=== PATIENT | female | born 1955 | race African-American/Black ===

== ENCOUNTER 2020-06-14 20:21 | Emergency (ER) | payer OTHER ==
--- OUTSIDE RECORDS SUMMARY | 2020-06-14 20:24 | XMS REPORT | Continuity of Care Document ---
:1955 Author Organization [facility] t Address [address] [place] [address] [address]. [address] [place] [address] Care Team Providers Name Role Phone Sami Benoit MD Primary Care Physician Roland Love MD Attending Clinician Raeann ROMO, T. Attending Clinician Unavailable Adriana ROMO Attending Clinician Payers Payer Name Policy Type Policy Effective Date Expiration Date Sour ce Number CIGNACIGNA OPEN [id number] 2013 [place] ACCESS/NETWORKxx 00:00:00 Methodis t [id number]/28/20 14-PresentHMO CIGNA - MGD [id number] 2013 [facility] HMO/POS/OPEN [id number] -Prese ntHMO/POS Problems Condition Condition Condition Status Onset Resolution Last Treating Co mments Source Name Details Category Date Date Treatment Clinician Date Hemorrhoid Hemorrhoid Disease Active H sean s s [facility] Colon Colon Disease Active [place] polyp polyp Methodi [facility] Family Family Disease Active [place] history of history of Me thodi polyps in polyps in st the colon the colon Allergies, Adverse Reactions, Alerts Allergy Allergy Status Severity Reaction(s) Onset Inactive Treating Comm ents Source Name Type Date Date Clinician Lourdes Salcedo Active Anaphylaxis H sean h ty to 6-12 Methodi Derived adverse 00:00: st reaction 00 s to drug Family History Family Member Diagnosis Comments Start Date Stop Date Source Natural mother Colon polyps Idris Landeros Social History Social Habit Start Date Stop Date Quantity Comments Source Sex Assigned At [facility] Exposure to Not sure Idris Metho dist SARS-CoV-2 (event) Alcohol intake 2016-08-06 2016-08-06 Current drinker [place] [facility] 00:00:00 00:00:00 of alcohol (finding) Smoking Status Start Date Stop Date Source Never smoker Idris Coreyis t Medications Ordered Filled Start Stop Current Ordering Indication Dosage Frequency Signature Comments Components Source Medication Medication Date Date Medication? Clinician (SIG) Name Name Suprep Yes History of Drink 1 [place] Bowel Prep 3-04 colon bottle as Met hodi Kit 00:00: polyps directed st 17.5-3.13-1 00 for dose 1 .6 gram and 1 [place] bottle as directed for dose 2. SUPREP Yes Family 1 kit - [place] BOWEL PREP 6-15 history of take as Methodi KIT 00:00: polyps in directed st 17.5-3.13-1 00 the colon .6 gram [place] verapamil Yes 240mg Take 240 [address] [address] sustained 6-12 mg by Methodi release 13:13: mouth. st (CALAN-SR) 47 240 MG SR tablet losartan Yes 100mg Take 100 [place] (COZAAR) 6-12 mg by Methodi 100 MG 13:13: mouth. st tablet 47 Procedures Procedure Date / Time Performed Performing Clinician [facility] SURGICAL PATHOLOGY 2020-05-12 15:14:00 Luis Love REQUEST [place] COLONOSCOPY-EXTERNAL 2020-05-12 13:27:04 Luis Love MCE [place] COVID-19 QUALITATIVE 2020-05-10 15:21:00 Luis Love PCR [place] US BREAST RIGHT 2020-02-22 11:32:00 Katty Cary [facility] MM DIGITAL MAMMO SCREEN 2019-10-30 08:49:00 Katty Cary [facility] Plan of Care Planned Activity Planned Date Details Comments Source Future Scheduled 2021-10-[address] [facility] 00:00[facility]00 [facility] breast (procedure) [code = 437529705] Future Scheduled 2020-09-25 INFLUENZA VACCINE [place] [facility] Test 00:00:00 [code = INFLUENZA VACCINE] Future Scheduled 2020-02-[address] [facility] - Test 00:00:00 (12+) [code = [facility] DEPRESSION SCREENING (12+)] Future Scheduled 2019-10-[address] [facility] - Test 00:00:00 (#1) [code = [facility] INFLUENZA VACCINE (#1)] Future Scheduled 2006 BREAST CANCER [facility] Test 00:00:00 SCREENING [code = BREAST CANCER SCREENING] Future Scheduled 2006 COLONOSCOPY SCREENING [place] [facility] Test 00:00:00 [code = COLONOSCOPY SCREENING] Future Scheduled 2006 SHINGLES VACCINES [place] [facility] Test 00:00:00 (#1) [code = SHINGLES VACCINES (#1)] Future Scheduled [address] [facility] Test 00:00:00 (procedure) [code = [facility] 14300289] Future Scheduled [address] [facility] Test 00:00:00 [facility] cervix (procedure) [code = 722078053] Future Scheduled 1977 Screening for [facility] Test 00:00:00 malignant neoplasm of cervix (procedure) [code = 745250517] Future Scheduled 1974 Hepatitis C screening [place] [facility] Test 00:00:00 (procedure) [code = 029659071] Future Scheduled 1972 COVID-19 VACCINE (1) [place] [facility] [facility] Test 00:00:00 [code = COVID-19 VACCINE (1)] Future Scheduled [address] [facility] 00:00:00 [facility] colon (procedure) [code = 101362824] Encounters Start End Encounter Admission Attending Care Care Encounter Source Date/Time Date/Time Type Type Clinicians Facility Department ID 2020-05-12 2020-05-12 Outpatient [facility] [id number] [place] 00:00:00 00:00:00 LUIS [address] 2020-05-10 2020-05-10 Outpatient [facility] [id number] [place] 00:00:00 00:00:00 LUIS [address] 2019-10-27 2019-10-27 Office ELIOT Wright [id number] 11:02:57 11:43:04 Visit Jovi AMBULATOR 350.1.13.21 Y [id number] [id number] 2019-09-22 2019-09-22 Office ELIOT Wright [id number] 13:52:21 16:14:53 Visit Jovi AMBULATOR 350.1.13.21 Y [id number] [id number] 300 Results Test Description Test Time Test Comments Results Result Comments Source Surgical pathology request 2020-05-13 14:38:44 Test Item Value Reference Range Interpretation Comme nts Case number (test code = 8641931) [id number] Surgical pathology report (test code = See link below for PDF Lab R eport 2255) Result status (test code = 6352986) This is Final Report for [id number] Idris LanderosCOVID-19 qualitative [id number] 20:49:43 Test Item Value Reference Range Interpretation Comments Interpretation (test Negative results do code = 1011208) not preclude 2019-nCoV infection and should not be used as the sole basis for treatment or other patient management decisions. Negative results must be combined with clinical observations, patient history, and epidemiological information. COVID-19 qualitative Not-Detected Not-Detected PCR result (test code = 84684-8) COVID-19 qualitative See link below for C ase Number: PCR (test code = PDF Lab Report [id number]) Idris Kim, U/S, BREAST, UNILATERAL, [id number] 11:37:00Diagnostic workup per radiologist?->YesReason for Exam:->N63.10 [facility] : 1955 Sex: FMRN#: [id number] - MM, U/S, BREAST, UNILATERAL, RIGHT COMPLETE ULTRASOUND OF RIGHT BREAST AND AXILLA: 02/22/2020Comparison is made to exam dated: 10/30/2019 mammogram [facility]. Color flow and real-time ultrasound of the right breast fourquadrants, retroareolar, and axilla regions were performed. Carter scale images of the real-time examination were reviewed. There is a benign 5 mm cyst in the right breast at 10 o'clock anterior depth. This correlates with mammography findings. IMPRESSION: BENIGN The findings have been discussed with the patient. There is no sonographic evidence of malignancy. The 5 mm cyst in the right breastis benign. A 1 year screening mammogram is recommended. Jes Mcdaniel M.D. pth/penrad:02/22/2020 11:37:32 Normal Exam Ultrasound BI-RADS: 2 Benign [id number] Breast [id number] 11:37:00Interface, External Ris In - 02/22/2020 1:02 PM CSTMRN#: [id number] - MM, U/S, BREAST, UNILATERAL, RIGHT COMPLETE ULTRASOUND OF RIGHT BREAST AND AXILLA: 02/22/2020Comparison is made to exam date d: 10/30/2019 mammogram [facility]. Color flow and real-time ultrasound of the right breast four quadrants, retroareolar, and axilla regions were performed. Carter scale images of the real- time examination were reviewed. There is a benign 5 mm cyst in theright breast at 10 o'clock anterior depth. This correlates with mammography findings. IMPRESSION: BENIGN The findings have been discussed with the patient. There is no sonographic evidence of malignancy. The 5 mm cyst in the right breast is benign. A 1 year screening mammogram is recommended. Jes Mcdaniel M.D. pth/penrad:02/22/2020 11:37:32 Normal Exam Ultrasound BI-RADS: 2 Benign [id number] [place] [facility], [facility]CREEN[facility], BILATERAL INCLUDING [id number] 09:03:00Diagnostic workup per radiologist?->YesReason for Exam:->screeningMRN#: [id number] - MM, DIGITAL, MAMMO, SCREENING, BILATERAL INCLUDING CAD BILATERAL DIGITAL SCREENING MAMMOGRAM WITH CAD: 10/30/2019 Comparison is made to exams dated: 10/15/2017 mammogram, 03/12/2016 mammogram, and 07/23/2013 mammogram - [facility]. There are scattered fibroglandular elements in both breasts that could obscure a lesion on mammography. Current study was also evaluated with a Computer Aided Detection (CAD) system. Benign appearing calcifications are present in the left breast. There is a new 5 mm oval mass with an obscured and circumscribed margin in the right breast at 10 o'clock anterior depth. No other significant masses, calcifications, or other findings are seen in either breast. IMPRESSION: INCOMPLETE: NEEDS ADDITIONAL IMAGING EVALUATIONThe new 5 mm oval mass in the right breast is indeterminate. An ultrasound is recommended. Jes Mcdaniel M.D. pth/penrad:10/30/2019 09:03:58 Addional Imaging Needed Mammogram BI-RADS: 0 Indeterminate G0202 Mammogram Screening Bilateral 2019-10-30 09:03:00Interface, External Ris In - 10/30/2019 4:26 PM CDTMRN#: [id number] - MM, DIGITAL, MAMMO, SCREENING, BILATERAL INCLUDING CAD BILATERAL DIGITAL SCREENING MAMMOGRAM WITH CAD: 10/30/2019 Comparison is made to exams dated: 10/15/2017 mammogram, 03/12/2016 mammogram, and 07/23/2013 mammogram - [facility]. There are scattered fibroglandular elements in both breasts that could obscure a lesion on mammography. Current study was also evaluated with a Computer Aided Detection (CAD) system. Benign appearing calcifications are present in the left breast. There is a new 5 mm oval mass with an obscured and circumscribed margin in the right breast at 10 o'clock anterior depth. No other significant masses, calcifications, or other findings are seen in either breast. IMPRESSION: INCOMPLETE: NEEDS ADDITIONAL IMAGING EVALUATIONThe new 5 mm oval mass in the rig ht breast is indeterminate. An ultrasound is recommended. Jes Mcdaniel M.D. pth/penrad:10/30/2019 09:03:58 Addional Imaging Needed Mammogram BI- RADS: 0 Indeterminate G0202 [facility], BILATERAL INCLUDING [id number] 12:54:00Reason for Exam:->screeningMRN#: [id number] - MM, DIGITAL, MAMMO, SCREENING, BILATERAL INCLUDING CADBILATERAL DIGITAL SCREENING MAMMOGRAM WITH CAD: 10/15/2017CLINICAL: Routine screening mammogram. Comparison is made to exams dated: 03/12/2016 mammogram and 07/23/2013 mammogram - [facility]. There are scattered fibroglandular elements in both breasts that could obscure a lesion on mammography. Current study was also evaluated with a Computer Aided Detection (CAD) system. There are benign calcifications in the left breast. No significant masses, calcifications, or other findings are seen in either breast. There has been no significant interval change. IMPRESSION: BENIGNThere is no mammographic evidence of malignancy. A 1 year screening mammogram is recommended. The exam was reviewed by a staff physician. Jes Tsai M.D.pth,dagoberto/[place]:10/15/2017 12:54:06 Normal Exam Mammogram BI-RADS: 2 Benign G0202
[2020-06-14] MEDS ORDERED: METHYLPREDNISOLONE 125 MG INJ ONE (20:55)
[2020-06-14] MEDS ORDERED: predniSONE 20 MG TAB ONE (20:55)
[2020-06-14] MEDS ORDERED: DIPHENHYDRAMINE 50 MG/ML VIAL ONE (20:55)
[2020-06-14] MEDS ORDERED: FAMOTIDINE 20 MG/2 ML VIAL IV ONE (20:56)
[2020-06-14] MEDS ORDERED: NA CHLORIDE 0.9% 1,000 ML ONE (20:56)
[2020-06-14 20:59] LABS: Basophils % 0.6 % (0-1.3); Hematocrit 41.3 % (36.0-45.0); Lymphocytes % 36.2 % (15.3-44.8); MPV 9.2 fL (7.6-11.3); RBC Red Blood Cell Count 4.63 M/uL (3.86-4.86)
[2020-06-14 21:04] LABS: Protime INR 1.12
[2020-06-14 21:10] LABS: Urine Blood Trace-intact (Negative); Urine Glucose Negative (Negative); Urine Protein Negative (Negative); Urine Specific Gravity 1.015 (1.005-1.030); Urine pH 7.5 (5.0-7.0)
--- NOTE | 2020-06-14 21:15 | RAD REPORT ---
EXAM DESCRIPTION: RAD - Chest Single View - 06/14/2020 9:09 pm CLINICAL HISTORY: Cough;Dyspnea Chest pain. COMPARISON: <Comparisons> FINDINGS: Portable technique limits examination quality. The lungs are grossly clear. The heart is normal in size. Mildly tortuous thoracic aorta. No displace d fractures. IMPRESSION: No acute intrathoracic process suspected.
[2020-06-14 21:17] LABS: ALT/SGPT 29 U/L (12-78); AST/SGOT 19 U/L (15-37); Albumin 3.4 g/dL (3.4-5.0); Alkaline Phosphatase 157 U/L (45-117); BUN Blood Urea Nitrogen 17 mg/dL (7-18); Bicarbonate 30 mmol/L (21-32); Bilirubin Direct 0.2 mg/dL (0-0.2); Bilirubin Total 0.4 mg/dL (0.2-1.0); Glucose Level 109 mg/dL (74-106); Lipase 50 U/L (73-393); Magnesium 1.8 mg/dL (1.8-2.4); NT PRO-BNP 24 pg/mL (<125); Potassium 3.2 mmol/L (3.5-5.1); Protein, Total 7.4 g/dL (6.4-8.2); Sodium Level 141 mmol/L (136-145); Troponin (Emerg Dept Use Only) < 0.02 ng/mL (0.0-0.045)
--- NOTE | 2020-06-14 21:32 | ER ---
Nurse's Notes [facility] Mynort Name: Michelle Oreilly Age: 64 yrs Sex: Female : 1955 Arrival Date: 06/14/2020 Time: 20:23 Bed 3 Private MD: Diagnosis: Food allergy status-shrimp;Hypokalemia Presentation: 06/14 20:25 Chief complaint: EMS states: Pt ate egg rolls that have shrimp, Pt allergic to shrimp, wh she developed abd pain and cramping. Pt injected Epi pen and was giuven Benadryl by EMS. Coronavirus screen: Client denies travel out of the [place] in the last 14 days. At this time, the client does not indicate any symptoms associated with coronavirus-19. Ebola Screen: Patient negative for fever greater than or equal to 101.5 degrees Fahrenheit, and additional compatible Ebola Virus Disease symptoms Patient denies exposure to infectious person. Initial Sepsis Screen: Does the patient meet any 2 criteria? No. Patient's initial sepsis screen is negative. Does the patient have a suspected source of infection? No. Patient's initial sepsis screen is negative. Risk Assessment: Do you want to hurt yourself or someone else? Patient reports no desire to harm self or others. Onset of symptoms was June 14, 2020. Care prior to arrival: Medication(s) given: Benadryl 12.5 mg IV Benadryl 12.5 mg IM IV initiated. 18 GA, in the right antecubital area. 20:25 Method Of Arrival: EMS: [facility] 20:25 Acuity: MALVIN 3 wh Historical: - Allergies: 20:30 Shrimp; wh 20:30 SHELLFISH; wh - Home Meds: 20:30 losartan 100 mg oral tab 1 tab once daily [Active]; verapamil 240 mg Oral C24P 1 cap wh once daily [Active]; - PMHx: 20:30 Hypertension; wh - Immunization history:: Adult Immunizations up to date. - Social history:: Smoking status: Patient denies any tobacco usage or history of. - Family history:: not pertinent. Screenin:30 Abuse screen: Denies threats or abuse. Denies injuries from another. Nutritional wh screening: No deficits noted. Tuberculosis screening: No symptoms or risk factors identified. Fall Risk None identified. Assessment: 20:31 General: Appears in no apparent distress. Behavior is calm, cooperative, appropriate wh for age. Pain: Complains of pain in abdomen Quality of pain is described as crampy. Neuro: Level of Consciousness is awake, alert, obeys commands, Oriented to person, place, time, situation, Appropriate for age. Cardiovascular: Heart tones S1 S2. Respiratory: Airway is patent Respiratory effort is even, unlabored, Respiratory pattern is regular, symmetrical, Breath sounds are clear bilaterally. GI: Abdomen is non-distended. : No signs and/or symptoms were reported regarding the genitourinary system. EENT: Throat is pink. Derm: Skin is intact, is healthy with good turgor, Skin is pink, warm \T\ dry. normal. Musculoskeletal: Circulation, motion, and sensation intact. Vital Signs: 20:25 BP 169 / 94; Pulse 77; Resp 18; Temp 97.4; Pulse Ox 99% ; Weight 108.86 kg; Height 5 wh ft. 6 in. (167.64 cm); 22:08 BP 168 / 83; Pulse 73; Resp 18; Pulse Ox 100% on R/A; mg2 20:25 Body Mass Index 38.74 (108.86 kg, 167.64 cm) ED Course: 20:23 Patient arrived in ED. mw2 20:23 Renaldo Wilkes MD is Attending Physician. [facility] 20:25 Jacob Saul, RN is Primary Nurse. 20:29 Triage completed. 20:31 Patient has correct armband on for positive identification. Bed in low position. Call light in reach. Side rails up X 1. Pulse ox on. NIBP on. 20:32 Arm band placed on right wrist. 20:32 Maintain EMS IV. Dressing intact. Good blood return noted. Site clean \T\ dry. 21:09 XRAY Chest (1 view) In Process Unspecified. EDMS 21:32 Dom Duenas MD is Referral Physician. [facility] 22:08 No provider procedures requiring assistance completed. IV discontinued, intact, mg2 bleeding controlled, No redness/swelling at site. Pressure dressing applied. Administered Medications: 21:08 Drug: NS 0.9% 500 ml Route: IV; Rate: bolus; Site: right antecubital; 21:10 Drug: Benadryl (diphenhydrAMINE) 25 mg Route: IVP; Site: right antecubital; 21:12 Drug: Pepcid (famotidine) 20 mg Route: IVP; Site: right antecubital; 21:14 Drug: Pepcid (famotidine) 20 mg Route: IVP; Site: right antecubital; 21:16 Drug: SOLU-Medrol (methylPrednisoLONE) 125 mg Route: IVP; Site: right antecubital; 21:18 Drug: predniSONE 60 mg Route: PO; 21:34 Not Given (Physician Discretion): NS 0.9% 1000 ml IV at 125 ml/hr continuous 22:08 Drug: Potassium Effervescent Tablet 25 mEq Route: PO; mg2 Outcome: 21:32 Discharge ordered by . tereso 22:08 Discharged to home ambulatory. mg2 22:08 Condition: good 22:08 Discharge instructions given to patient, Instructed on discharge instructions, follow up and referral plans. medication usage, Demonstrated understanding of instructions, follow-up care, medications, Prescriptions given X 4. 22:09 Patient left the ED. mg2 Signatures: Dispatcher [employer] EDMS Renaldo Wilkes MD MD cha Habalo, Winsy RN RN Rosmery Clemons 2 Junior Cloud RN RN mg2
--- NOTE | 2020-06-14 21:33 | EDPHYS ---
Physician Documentation [facility] Name: Michelle Oreilly Age: 64 yrs Sex: Female : 1955 Arrival Date: 06/14/2020 Time: 20:23 Bed 3 Private MD: ED Physician Renaldo iWlkes HPI: 06/14 20:30 This 64 yrs old Black Female presents to ER via EMS with complaints of allergic tereso reaction, shrimp. 20:30 The patient presents with difficulty swallowing, nasal itching, rash, redness of skin. tereso Onset: The symptoms/episode began/occurred just prior to arrival. Associated signs and symptoms: Pertinent positives: shortness of breath, swelling. Possible causes: shellfish. The patient or guardian reports chest pain that is located primarily in the anterior chest wall. Onset: just prior to arrival. The patient presents with abdominal pain. Onset: The symptoms/episode began/occurred just prior to arrival. At home the patient or guardian has treated the symptoms with Benadryl. Severity of symptoms: At their worst the symptoms were mild moderate in the emergency department the symptoms have improved moderately. Historical: - Allergies: 20:30 Shrimp; wh 20:30 SHELLFISH; wh - Home Meds: 20:30 losartan 100 mg oral tab 1 tab once daily [Active]; verapamil 240 mg Oral C24P 1 cap wh once daily [Active]; - PMHx: 20:30 Hypertension; wh - Immunization history:: Adult Immunizations up to date. - Social history:: Smoking status: Patient denies any tobacco usage or history of. - Family history:: not pertinent. ROS: 20:30 Constitutional: Negative for fever, chills, and weight loss, Eyes: Negative for injury, tereso pain, redness, and discharge, ENT: Negative for injury, pain, and discharge, Neck: Negative for injury, pain, and swelling, Respiratory: Negative for shortness of breath, cough, wheezing, and pleuritic chest pain, Back: Negative for injury and pain, : Negative for injury, bleeding, discharge, and swelling, MS/Extremity: Negative for injury and deformity, Skin: Negative for injury, rash, and discoloration, Neuro: Negative for headache, weakness, numbness, tingling, and seizure, Psych: Negative for depression, anxiety, suicide ideation, homicidal ideation, and hallucinations, Endocrine: Negative for neck swelling, polydipsia, polyuria, polyphagia, and marked weight changes. 20:30 Allergy/Immunology: Positive for allergies, rash, diffusely. Exam: 20:30 Constitutional: This is a well developed, well nourished patient who is awake, alert, tereso and in no acute distress. Head/Face: Normocephalic, atraumatic. Eyes: Pupils equal round and reactive to light, extra-ocular motions intact. Lids and lashes normal. Conjunctiva and sclera are non-icteric and not injected. Cornea within normal limits. Periorbital areas with no swelling, redness, or edema. ENT: Nares patent. No nasal discharge, no septal abnormalities noted. Tympanic membranes are normal and external auditory canals are clear. Oropharynx with no redness, swelling, or masses, exudates, or evidence of obstruction, uvula midline. Mucous membranes moist. Neck: Trachea midline, no thyromegaly or masses palpated, and no cervical lymphadenopathy. Supple, full range of motion without nuchal rigidity, or vertebral point tenderness. No Meningismus. Chest/axilla: Normal chest wall appearance and motion. Nontender with no deformity. No lesions are appreciated. Cardiovascular: Regular rate and rhythm with a normal S1 and S2. No gallops, murmurs, or rubs. Normal PMI, no JVD. No pulse deficits. Respiratory: Lungs have equal breath sounds bilaterally, clear to auscultation and percussion. No rales, rhonchi or wheezes noted. No increased work of breathing, no retractions or nasal flaring. Abdomen/GI: Soft, non-tender, with normal bowel sounds. No distension or tympany. No guarding or rebound. No evidence of tenderness throughout. Back: No spinal tenderness. No costovertebral tenderness. Full range of motion. Skin: Warm, dry with normal turgor. Normal color with no rashes, no lesions, and no evidence of cellulitis. MS/ Extremity: Pulses equal, no cyanosis. Neurovascular intact. Full, normal range of motion. Neuro: Awake and alert, GCS 15, oriented to person, place, time, and situation. Cranial nerves II-XII grossly intact. Motor strength 5/5 in all extremities. Sensory grossly intact. Cerebellar exam normal. Normal gait. Psych: Awake, alert, with orientation to person, place and time. Behavior, mood, and affect are within normal limits. 21:33 ECG was reviewed by the Attending Physician. tereso Vital Signs: 20:25 BP 169 / 94; Pulse 77; Resp 18; Temp 97.4; Pulse Ox 99% ; Weight 108.86 kg; Height 5 wh ft. 6 in. (167.64 cm); 22:08 BP 168 / 83; Pulse 73; Resp 18; Pulse Ox 100% on R/A; mg2 20:25 Body Mass Index 38.74 (108.86 kg, 167.64 cm) wh MDM: 20:23 Patient medically screened. tereso 20:34 Differential diagnosis: anaphylaxis, angioedema, abnormal EKG, coronary artery disease tereso chest wall pain, gastroesophageal reflux disease (GERD), pneumonia, stable angina, coronary artery disease, myocardia ischemia or infarction, non-specific abd pain, Perf. Gastric Ulcer. HEART Score: History: Slightly Suspicious (0), ECG: Normal (0), Age: > 45 and < 65 years (1), Risk Factors: > or = 3 Risk factors for atherosclerotic disease (2), [Hypertension] [+ Family HX] [Obesity] Troponin: < or = 1 x Normal Limit (0). The patient was not given aspirin in the Emergency Department. Not indicated due to patient's past medical history. The patient's deep vein thrombosis risk score was calculated as follows: Total Score: 0. This patient was found to be at low risk for a deep vein thrombosis by using the Well's assessment criteria. The patient's pulmonary embolism risk score was calculated as follows: Total Score: 0-2 points. This patient was found to be at low risk for a pulmonary embolism by using the Well's assessment criteria. LINUS Risk Score: TOTAL SCORE = 0. Data reviewed: vital signs, nurses notes, lab test result(s), EKG, radiologic studies, plain films. Data interpreted: classroom monitor: rate is 77 beats/min, rhythm is regular, Pulse oximetry: on room air is 99 %. Test interpretation: by ED physician or midlevel provider: ECG, plain radiologic studies. Counseling: I had a detailed discussion with the patient and/or guardian regarding: the historical points, exam findings, and any diagnostic results supporting the discharge/admit diagnosis, lab results, radiology results, the need for outpatient follow up, for definitive care, an allergy/ultrasound specialist, a family practitioner. 06/14 20:29 Order name: Basic Metabolic Panel [facility] 06/14 20:29 Order name: CBC with Diff; Complete Time: [facility] 06/14 20:29 Order name: LFT's; Complete Time: : [facility] 06/14 20:29 Order name: Magnesium; Complete Time: : [facility] 06/14 20:29 Order name: NT PRO-BNP; Complete Time: : [facility] 06/14 20: Order name: PT-INR; Complete Time: : [facility] 06/14 20:29 Order name: Troponin (emerg Dept Use Only); Complete Time: : [facility] 06/14 20:29 Order name: XRAY Chest (1 view); Complete Time: [facility] 06/14 20:29 Order name: Lipase; Complete Time: : [facility] 06/14 20:30 Order name: Basic Metabolic Panel; Complete Time: : [facility] 06/14 21:10 Order name: Urine Dipstick-Ancillary; Complete Time: [facility] 06/14 20:29 Order name: EKG; Complete Time: : [facility] 06/14 20:29 Order name: Cardiac monitoring; Complete Time: : [facility] 06/14 20:29 Order name: EKG - Nurse/Tech; Complete Time: : [facility] 06/14 20:29 Order name: IV Saline Lock; Complete Time: : [facility] 06/14 20:29 Order name: Labs collected and sent; Complete Time: : [facility] 06/14 20:29 Order name: O2 Per Protocol; Complete Time: : [facility] 06/14 20: Order name: O2 Sat Monitoring; Complete Time: : [facility] 06/14 20:29 Order name: Urine Dipstick-Ancillary (obtain specimen); Complete Time: 21: tereso EC:33 Rate is 70 beats/min. Rhythm is regular. QRS [place] is Normal. WA interval is normal. QRS tereso interval is normal. QT interval is normal. No Q waves. T waves are Normal. No ST changes noted. Clinical impression: NSR w/ Non-specific ST/T Changes, LVH, and No evidence of ischemia. Interpreted by me. Reviewed by me. Administered Medications: 21: Drug: NS 0.9% 500 ml Route: IV; Rate: bolus; Site: right antecubital; 21:10 Drug: Benadryl (diphenhydrAMINE) 25 mg Route: IVP; Site: right antecubital; 21:12 Drug: Pepcid (famotidine) 20 mg Route: IVP; Site: right antecubital; wh 21:14 Drug: Pepcid (famotidine) 20 mg Route: IVP; Site: right antecubital; 21:16 Drug: SOLU-Medrol (methylPrednisoLONE) 125 mg Route: IVP; Site: right antecubital; 21:18 Drug: predniSONE 60 mg Route: PO; 21:34 Not Given (Physician Discretion): NS 0.9% 1000 ml IV at 125 ml/hr continuous 22:08 Drug: Potassium Effervescent Tablet 25 mEq Route: PO; mg2 Disposition: 06/14/20 21:32 Discharged to Home. Impression: Food allergy status - shrimp, Hypokalemia. - Condition is Stable. - Discharge Instructions: Potassium Content of Foods, Food Allergy, Seafood Allergy, Food Allergy, Ujpe-[id number], Hypokalemia. - Prescriptions for Benadryl 25 mg Oral Capsule - take 1 capsule by ORAL route every 6 hours As needed; 30 tablet. Pepcid 20 mg Oral Tablet - take 1 tablet by ORAL route every 12 hours for 10 days; 20 tablet. Prednisone 20 mg Oral Tablet - take 2 tablet by ORAL route once daily for 5 days; 10 tablet. EpiPen 0.3 mg Injection auto- injector - inject 1 pen by INTRAMUSCULAR route as directed Inject into the outer portion of the thigh, through clothing if necessary. Indicated in the emergency treatment of allergic reactions; 1 Cartridge. - Medication Reconciliation Form, Thank You Letter, Antibiotic Education, Prescription Opioid Use form. - Follow up: Private Physician; When: 2 - 3 days; Reason: Recheck today's complaints, Continuance of care, Re-evaluation by your physician. Follow up: Dom Duenas MD; When: 2 - 3 days; Reason: Recheck today's complaints, Re-evaluation by your physician. - Problem is new. - Symptoms have improved. Signatures: Dispatcher [employer] EDMS Renaldo Wilkes MD MD cha Habalo, Winsy, RN RN Gardose, Junior, RN RN mg2 Corrections: (The following items were deleted from the chart) 21:32 21:32 06/14/2020 21:32 Discharged to Home. Impression: Food allergy status - shrimp; tereso Hypokalemia. Condition is Stable. Discharge Instructions: Food Allergy, Seafood Allergy, Food Allergy, [id number]. Prescriptions for Benadryl 25 mg Oral Capsule - take 1 capsule by ORAL route every 6 hours As needed; 30 tablet, Pepcid 20 mg Oral Tablet - take 1 tablet by ORAL route every 12 hours for 10 days; 20 tablet, Prednisone 20 mg Oral Tablet - take 2 tablet by ORAL route once daily for 5 days; 10 tablet, EpiPen 0.3 mg Injection auto-injector - inject 1 pen by INTRAMUSCULAR route as directed Inject into the outer portion of the thigh, through clothing if necessary. Indicated in the emergency treatment of allergic reactions; 1 Cartridge. and Forms are Medication Reconciliation Form, Thank You Letter, Antibiotic Education, Prescription Opioid Use. Follow up: Private Physician; When: 2 - 3 days; Reason: Recheck today's complaints, Continuance of care, Re-evaluation by your physician. Problem is new. Symptoms have improved. tereso 22:09 21:32 06/14/2020 21:32 Discharged to Home. Impression: Food allergy status - shrimp; mg2 Hypokalemia. Condition is Stable. Discharge Instructions: Food Allergy, Seafood Allergy, Food Allergy, [id number]. Prescriptions for Benadryl 25 mg Oral Capsule - take 1 capsule by ORAL route every 6 hours As needed; 30 tablet, Pepcid 20 mg Oral Tablet - take 1 tablet by ORAL route every 12 hours for 10 days; 20 tablet, Prednisone 20 mg Oral Tablet - take 2 tablet by ORAL route once daily for 5 days; 10 tablet, EpiPen 0.3 mg Injection auto-injector - inject 1 pen by INTRAMUSCULAR route as directed Inject into the outer portion of the thigh, through clothing if necessary. Indicated in the emergency treatment of allergic reactions; 1 Cartridge. and Forms are Medication Reconciliation Form, Thank You Letter, Antibiotic Education, Prescription Opioid Use. Follow up: Private Physician; When: 2 - 3 days; Reason: Recheck today's complaints, Continuance of care, Re-evaluation by your physician. Follow up: Dom Duenas; When: 2 - 3 days; Reason: Recheck today's complaints, Re-evaluation by your physician. Problem is new. Symptoms have improved. tereso
[2020-06-14] MEDS ORDERED: POTASSIUM 25 MEQ EFFERV TAB ONE (22:19)
[2020-06-14 22:21] VITALS: TEMP 97.4
[2020-06-14 22:23] VITALS: BP 168/83; O2SAT 100
--- NOTE | 2020-06-15 16:10 | EKG ---
Test Date: 2020-06-14 Test Time: 21:15:01 Director Of Retail Merchandising: MEASUREMENT RESULTS: Intervals: Rate: 70 WI: 158 QRSD: 84 QT: 418 QTc: 451 Dickens: P: 45 WI: 158 QRS: 4 T: -83 INTERPRETIVE STATEMENTS: Poor data quality, interpretation may be adversely affected Normal sinus rhythm Minimal voltage criteria for LVH, may be normal variant T wave abnormality, consider inferolateral ischemia Abnormal ECG No previous ECG available for comparison Electronically Signed On 06-15-20 16:07:03 CDT by Reilly Rojas
== END 2020-06-14 22:09 | disposition home or self-care (01) ==
LOC: ER 20:21
DX: E87.6 Hypokalemia (principal); Z91.013 Allergy to seafood; I10 Essential (primary) hypertension
CPT/HCPCS: 93005; 85025; 80048; 36415; 83735; 85610; 80076; 81003; 84484; 83690; 83880; 71045; 96375; 96374; 99284; J1200; J7512; J7030; J2930